=== PATIENT | female | born 1980 | race Two or more races ===

== ENCOUNTER 2025-02-06 09:25 | Emergency (ER) | payer MEDICAID, OTHER ==
[~2025-02-06] VITALS: Ht 165.1 cm; Wt 59.0 kg
--- NOTE | 2025-02-06 09:49 | ED.PDOC ---
Psychiatric HPI Comments 44 y/o F, HUANG, presents to the ED for CC of suicidal ideation. Patient states, that she has been having suicidal ideations with feelings of "wanting to jump off a building" and associated auditory hallucinations that she is unable to block out which are constantly talking. Patient relays, homicidal ideations as well but feels that she is more of a victim where she would have to act an in attempt to defend herself. Patient admits to recently using methamphetamines, drinking alcohol, and noncompliance with prescribed medications. Patient denies significant changes in sleep, appetite, or energy. Chief Complaint: Suicidal Time Seen by MD: 09:45 Reviewed Notes: Nurses Notes, Medications, Allergies Information Source: Patient, Emergency Med Personnel Mode of Arrival: EMS Severity: Able to Control Self Severity of Pain: None Severity of Mental Status: Moderate Severity of Symptoms: Moderate Timing: Days Duration: Since onset Prehospital treatment: None Presents with: Suicidal Ideation Attempt: Other Ingestion: None Circumstance: None Current substance abuse: ETOH, Amphetamines Stressors: None History of: None Quality: Hallucinations Associated signs and symptoms: None Past Medical History PAST MEDICAL HISTORY: Denies Surgical History: Denies all surgeries SCALPER OPERATOR History: Denies all SCALPER OPERATOR Hx Family History Family History: Unknown Social History Smoker: Unknown Alcohol: Occasionally Drugs: Methamphetamine Lives In: Unknown Constitutional: denies: chills, diaphoresis, fatigue, fever, malaise, sweats, weakness, others EENTM: denies: blurred vision, double vision, ear bleeding, ear discharge, ear drainage, ear pain, ear ringing, eye pain, eye redness, hearing loss, mouth pain, mouth swelling, nasal discharge, nose bleeding, nose congestion, nose pain, photophobia, tearing, throat pain, throat swelling, voice changes, others Respiratory: denies: cough, hemoptysis, orthopnea, SOB at rest, shortness of breath, SOB with excertion, stridor, wheezing, others Cardiovascular: denies: chest pain, dizzy spells, diaphoresis, Dyspnea on exertion, edema, irregular heart beat, left arm pain, lightheadedness, palpi tations, PND, syncope, others Gastrointestinal: denies: abdomen distended, abdominal pain, blood streaked bowels, constipated, diarrhea, dysphagia, difficulty swallowing, hematemesis, melena, nausea, poor appetite, poor fluid intake, rectal bleeding, rectal pain, vomiting, others Genitourinary: denies: abnormal vagina bleeding, burning, dyspareunia, dysuria, flank pain, frequency, hematuria, incontinence, pain, , vagina discharge, urgency, others Neurological: denies: dizziness, fainting, headache, left sided numbness, left sided weakness, numbness, paresthesia, pre-existing deficit, right sided numbness, right sided weakness, seizure, speech problems, tingling, tremors, weakness, others Integumetry: denies: bruises, change in color, change in hair/nails, dryness, laceration, lesions, lumps, rash, wounds, others Allergic/Immunocompromised: denies: Difficulty Healing, Frequent Infections, Hives, Itching, others Hematologic/Lymphatic: denies: anemia, blood clots, easy bleeding, easy bruising, swollen glands, others Endocrine: denies: excessive hunger, excessive sweating, excessive thirst, excessive urination, flushing, intolerance to cold, intolerance to heat, unexplained weight gain, unexplained weight loss, others Psychiatric: reports: suicidal; denies: anxiety, bipolar disorder, depression, hopeless, panic disorder, schizophrenia, sleepless, others All Other Systems: Reviewed and Negative Physical Exam General Appearance: No Apparent Distress, Normal, Other (unkempt disheveled) HEENT: Normal ENT Inspection, Pharynx Normal Neck: Full Range of Motion, Non-Tender, Normal, Normal Inspection Respiratory: Chest Non-Tender, Lungs Clear, No Accessory Muscle Use, No Respiratory Distress, Normal Breath Sounds Cardiovascular: No Edema, No Murmur, No Gallop, Normal Peripheral Pulses, Regular Rate/Rhythm Breast Exam: Deferred Gastrointestinal: No Organomegaly, Non Tender, No Pulsatile Mass, Normal Bowel Sounds, Soft Genitalia: Deferred Pelvic: Deferred Rectal: Deferred Extremities: No calf tenderness, Normal capillary refill, Normal inspection, Normal range of motion, Non-tender, No pedal edema Musculoskeletal : Apperance: Normal Neurologic: Alert, general handling supervisor II-XII nml as Tested, No Motor Deficits, Normal Affect, Normal Mood, No Sensory Deficits Cerebellar Function: Normal Reflexes: Normal Skin: Dry, Normal Color, Warm Lymphatic: No Adenopathy Was a procedure done? Was a procedure done?: No Psych Differential Dx OD Differential Dx: Depression, Hallucinations, Schizophrenia, Substance Abuse, Suicidal Gesture Suicidal Differential Dx: Bipolar Disorder, Schizoprenia, Substance Abuse X-Ray, Labs, Meds, VS Vital Signs Date Time Temp Pulse Resp B/P (MAP) Pulse Ox O2 Delivery O2 Flow Rate FiO2 02/06/25 20:37 98.3 72 18 112/71 (85) 98 98.3 02/06/25 20:00 98.3 77 18 110/88 (95) 98 98.3 02/06/25 20:00 98 Room Air* 0 21 02/06/25 12:11 Room Air* 0 21 02/06/25 12:11 97.8 101 16 109/74 (86) 98 97.8 02/06/25 09:30 98.2 72 18 108/69 (82) 100 98.2 Lab Test 02/06/25 13:00 02/06/25 10:20 Range/Units Urine Color Yellow Yellow Urine Clarity Turbid H Clear Urine pH 6.0 5.0-9.0 Urine Specific [place] 1.022 1.001-1.035 Urine Protein 1+ H Negative Urine Ketones Trace Negative Urine Blood Negative Negative /uL Urine Nitrite Negative Negative Urine Bilirubin Negative Negative Urine Urobilinogen 2 H Negative mg/dL Urine Leukocyte Esterase Negative Negative /uL Urine RBC 1 0 - 4 /hpf Urine Microscopic WBC 6 H 0-5 /HPF Urine Squamous Epithelial Cells Few <5 /hpf Urine Bacteria None seen None Seen /hpf Urine Mucus Few None Seen Urine Glucose Normal Normal mg/dL Urine Opiates Screen Neg NEGATIVE Urine Fentanyl Screen Neg NEGATIVE Urine Barbiturates Screen Neg NEGATIVE Urine Phencyclidine Screen Neg NEGATIVE Urine Amphetamines Screen Neg NEGATIVE Urine Benzodiazepines Screen Pos NEGATIVE Urine Cocaine Screen Neg NEGATIVE Urine Cannabinoids Screen Neg NEGATIVE White Blood Count 8.9 4.4-10.8 10^3/uL Red Blood Count 4.29 4.0-5.20 10^6/uL Hemoglobin 13.5 12.2-16.2 g/dL Hematocrit 39.1 36.0-46.0 % Mean Corpuscular Volume 91.1 80.0-100.0 fL Mean Corpuscular Hemoglobin 31.4 28.0-32.0 pg Mean Corpuscular Hemoglobin Concent 34.4 32.0-36.0 g/dL Red Cell Distribution Width 13.4 11.8-14.3 % Platelet Count 397 140-450 10^3/uL Mean Platelet Volume 7.0 6.9-10.8 fL Neutrophils (%) (Auto) 61.1 37.0-80.0 % Lymphocytes (%) (Auto) 31.6 10.0-50.0 % Monocytes (%) (Auto) 5.9 0.0-12.0 % Eosinophils (%) (Auto) 1.1 0.0-7.0 % Basophils (%) (Auto) 0.3 0.0-2.0 % Neutrophils # (Auto) 5.4 1.6-8.6 10 ^3/uL Lymphocytes # (Auto) 2.8 0.4-5.4 10 ^3/uL Monocytes # (Auto) 0.5 0-1.3 10 ^3/uL Eosinophils # (Auto) 0.1 0-0.8 10 ^3/uL Basophils # (Auto) 0 0-0.2 10 ^3/uL Nucleated Red Blood Cells 0.1 % Sodium Level 142 136-145 mmol/L Potassium Level 3.3 L 3.5-5.1 mmol/L Chloride Level 104 98-107 mmol/L Carbon Dioxide Level 30 20-31 mmol/L Anion Gap 8 5-15 Blood Urea Nitrogen 6 L 9-23 mg/dL Creatinine 0.59 0.550-1.02 mg/dL Glomerular Filtration Rate Calc 114 >90 mL/min BUN/Creatinine Ratio 10.2 10.0-20.0 Serum Glucose 92 74-106 mg/dL Calcium Level 10.6 H 8.7-10.4 mg/dL Salicylates Level < 3.0 -30 mg/dL Acetaminophen Level < 2.0 L 10.0-20.0 UG/ML Plasma/Serum Blood Alcohol < 3.0 <10 mg/dL Time of 1ST Reevaluation: 10:15 Reevaluation 1ST: Unchanged Patient Education/Counseling: Diagnosis, Treatment Family Education/Counseling: No Family Present Departure 1 Departure Time of Disposition: 18:36 (Patient presenting with suicide ideation. Patient is medically cleared. [facility] was accepted to [facility] Impression: Primary Impression: Suicidal ideation Disposition: [address] [place] [address] HOSPITAL Condition: Serious Critical Care Note Critical Care Time?: Yes Critical care comment: Suicidal Authorized and Performed by: Keegan Figueroa MD Total critical care time: Approximately 34 minutes Due to a high probability of clinically significant, life threatening deterioration, the patient required my highest level of preparedness to intervene emergently and I personally spent this critical care time directly and personally managing the patient. This critical care time included obtaining a history; examining the patient; pulse oximetry; ordering and review of studies; arranging urgent treatment with development of a management plan; evaluation of patient's response to treatment; frequent reassessment; and, discussions with other providers. This critical care time was performed to assess and manage the high probability of imminent, life-threatening deterioration that could result in multi-organ failure. It was exclusive of separately billable procedures and treating other patients and teaching time. Please see my other sections and the rest of the note for further information on patient assessment and treatment. Stability Stability form required: No Heart Score Heart Score: Heart Score Response (Comments) Value History N/A 0 EKG N/A 0 Age N/A 0 Risk Factors N/A 0 Troponin N/A 0 Total 0 I personally scribed for KEEGAN FIGUEROA MD ([email or web address]) on 02/06/25 at 09:49. Electronically submitted by Lilo Arriaga ([email or web address]). I personally scribed for KEEGAN FIGUEROA MD ([email or web address]) on 02/06/25 at 10:14. Electronically submitted by Lilo Arriaga ([email or web address]). KEEGAN FIGUEROA MD Feb 06, 2025 09:49
[2025-02-06 10:30] LABS: Hematocrit 39.1 % (36.0-46.0); Hemoglobin 13.5 g/dL (12.2-16.2); Mean Corpuscular Hemoglobin 31.4 pg (28.0-32.0); Mean Corpuscular Volume 91.1 fL (80.0-100.0); Nucleated Red Blood Cells % 0.1 %
[2025-02-06 10:41] LABS: Chloride 104 mmol/L (98-107); Sodium 142 mmol/L (136-145)
[2025-02-06 10:42] LABS: Anion Gap 8 (5-15); Carbon Dioxide 30 mmol/L (20-31)
[2025-02-06 10:47] LABS: BUN/Creatinine Ratio 10.2 (10.0-20.0); Glucose 92 mg/dL (74-106)
[2025-02-06 10:48] LABS: Blood Urea Nitrogen 6 mg/dL (9-23); Calcium 10.6 mg/dL (8.7-10.4); Potassium 3.3 mmol/L (3.5-5.1)
[2025-02-06 10:52] LABS: Acetaminophen < 2.0 UG/ML (10.0-20.0); Salicylate < 3.0 mg/dL (-30)
--- NOTE | 2025-02-06 12:04 | DVHINCON2 ---
Date of Service if different f: Feb 06, 2025 Time of Service: 12:04 Consultation (GRANT) Labs Laboratory Tests Test 02/06/25 10:20 White Blood Count 8.9 10^3/uL (4.4-10.8) Red Blood Count 4.29 10^6/uL (4.0-5.20) Hemoglobin 13.5 g/dL (12.2-16.2) Hematocrit 39.1 % (36.0-46.0) Mean Corpuscular Volume 91.1 fL (80.0-100.0) Mean Corpuscular Hemoglobin 31.4 pg (28.0-32.0) Mean Corpuscular Hemoglobin Concent 34.4 g/dL (32.0-36.0) Red Cell Distribution Width 13.4 % (11.8-14.3) Platelet Count 397 10^3/uL (140-450) Mean Platelet Volume 7.0 fL (6.9-10.8) Neutrophils (%) (Auto) 61.1 % (37.0-80.0) Lymphocytes (%) (Auto) 31.6 % (10.0-50.0) Monocytes (%) (Auto) 5.9 % (0.0-12.0) Eosinophils (%) (Auto) 1.1 % (0.0-7.0) Basophils (%) (Auto) 0.3 % (0.0-2.0) Neutrophils # (Auto) 5.4 10 ^3/uL (1.6-8.6) Lymphocytes # (Auto) 2.8 10 ^3/uL (0.4-5.4) Monocytes # (Auto) 0.5 10 ^3/uL (0-1.3) Eosinophils # (Auto) 0.1 10 ^3/uL (0-0.8) Basophils # (Auto) 0 10 ^3/uL (0-0.2) Nucleated Red Blood Cells 0.1 % Sodium Level 142 mmol/L (136-145) Potassium Level 3.3 mmol/L (3.5-5.1) Chloride Level 104 mmol/L (98-107) Carbon Dioxide Level 30 mmol/L (20-31) Anion Gap 8 (5-15) Blood Urea Nitrogen 6 mg/dL (9-23) Creatinine 0.59 mg/dL (0.550-1.02) Glomerular Filtration Rate Calc 114 mL/min (>90) BUN/Creatinine Ratio 10.2 (10.0-20.0) Serum Glucose 92 mg/dL (74-106) Calcium Level 10.6 mg/dL (8.7-10.4) Salicylates Level < 3.0 mg/dL (-30) Acetaminophen Level < 2.0 UG/ML (10.0-20.0) Plasma/Serum Blood Alcohol < 3.0 mg/dL (<10) Vitals Vital Signs Date Time Temp Pulse Resp B/P (MAP) Pulse Ox O2 Delivery O2 Flow Rate FiO2 02/06/25 09:30 98.2 72 18 108/69 (82) 100 98.2 PSYCHIATRY CONSULTATION ED INITIAL EVALUATION REASON FOR CONSULT: SI HPI: 44yo W presents with c/o SI and AH. On evaluation in the ED, pt is able to provide her name, location, gives the month and year. Says she is in the hospital because she was not feeling well, was hallucinating really bad, and hearing voices. This all started when she used a lot of meth a week. She was using more than I should have. She cannot says when she last used. She uses a lot, several days in a row, then she feels really sick. She denies other drugs, did have alcohol last night. Pt drinks quite often. Last night, she had some beer and other drinks, she cannot quite quantify. She reports history of blacking out due to intoxication. She denies alcohol withdrawal. Pt reports ongoing paranoid ideations. Feels she is being set up. She also reports ongoing SI, feels things are not going to get better. Says anything in my life is never going to get better. Pt says she feels this way even when she is not using. Pt says she wants to end her life. She denies access to firearms. In the past, pt used her hands to strangle herself. She also took 8 tablets of Zyprexa, she says to kill herself. No significant sequalae for either episode. Pt has no current plan or intention to kill herself. She wants help. PSYCHIATRIC HISTORY: DIAGNOSIS: Reports varying diagnoses, including bipolar disorder, schizoaffective d/o, major depression. ADMISSIONS: Prior admissions, cannot say last when. MEDICATION TRIALS: On Zyprexa 5 mg daily, 10 mg QHS, prescribed by her psychiatrist in [place]. Reports dystonic reaction, so takes Cogentin 1 mg daily. Pt also on Depakote 250 mg BID, Prozac 20 mg daily, also reports she is on Vistaril and Thorazine, cannot give exact doses. In the past, has been on Risperidone. OUTPATIENT CARE: In care per above. THERAPY: In the past, has not been in therapy for a while. SI/SELF-INJURY/SUICIDE ATTEMPT: She denies access to firearms. In the past, pt used her hands to strangle herself. She also took 8 tablets of Zyprexa, she says to kill herself. SUBSTANCE USE: Per above. RELEVANT MEDICAL HISTORY: Denies SOCIAL HISTORY: Highest level of education is the 8th grade. Grew up everywhere. Family moved all over since step-father was a soccer coach. Pt has 3 sisters and one brother. Currently homeless. Unemployed. Gets $1206 in SSI monthly. ALLERGIES: Haldol, dystonic reaction. MENTAL STATUS EXAMINATION: The patient is alert and oriented to person, place, and year, but not to exact date. She is cooperative but displays mild psychomotor slowing. Eye contact is fair. Speech is normal in rate and volume. Mood is not well, and affect is congruent, constricted. Thought process is linear and goal-directed. Thought content is notable for auditory hallucinations and paranoid ideation. The patient endorses suicidal ideation without a specific plan or intent at present but reports a history of past suicide attempts. No visual hallucinations reported. No homicidal ideation. Insight is limited, and judgment is impaired, especially in the context of substance use. Cognition grossly intact. 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 Her symptoms are compounded by significant methamphetamine and alcohol use. Although she denies current intent or plan, she has made multiple serious suicide attempts in the past, including strangulation and overdose on Zyprexa. She continues to report that life will never get better, even outside the context of substance use, suggesting a persistent depressive or psychotic baseline. Her insight is poor, and judgment impaired, particularly due to substance misuse. She is currently homeless and lacks social support, which further exacerbates her psychiatric risk and functional instability. Safety Assessment: The patient is not psychiatrically safe for discharge. She endorses suicidal ideation, reports recent and ongoing perceptual disturbances and paranoid ideation, and lacks adequate coping mechanisms or a stable environment. Given her impaired insight and repeated use of substances to the point of psychosis, she poses a significant risk to herself. She meets criteria for a 5150 involuntary psychiatric hold under [place] law for danger to self. RECOMMENDATIONS: 1. Legal: Initiate 5150 hold due to danger to self from suicidal ideation and psychosis. 2. Disposition: Transfer to inpatient psychiatric unit for stabilization and evaluation. 3. Medications: Restart Zyprexa 5 mg daily, 10 mg QHS. Other medications can be deferred to inpatient team. 4. Medical Considerations: Monitor for withdrawal symptoms; continue to assess for alcohol-related complications or stimulant toxicity. Obtain UDS. 5. Other: Recommend referral to dual diagnosis program/rehabilitation post- discharge; initiate social work consult for housing resources and long-term support. HARRY CHOE MD Feb 06, 2025 12:04
[2025-02-06 14:28] LABS: Urine Protein, UAD 1+ (Negative)
[2025-02-06 14:33] LABS: Amphetamine Screen, Urine Neg (NEGATIVE); Benzodiazephine Screen, Urine Pos (NEGATIVE)
[2025-02-06 14:36] LABS: Barbiturate Scree,Urine Neg (NEGATIVE); Cannabinoid Screen, Urine Neg (NEGATIVE); Cocaine Screen, Urine Neg (NEGATIVE); Opiate Scree,Urine Neg (NEGATIVE); Phencyclidine Screen, Urine Neg (NEGATIVE)
[2025-02-06 20:00] VITALS: O2SAT 98
[2025-02-06 20:37] VITALS: BP 112/71; PULSE 72; RESP 18; TEMP 98.3; O2SAT 98
[2025-02-06] MEDS ORDERED: OLANZapine 5 MG TAB PO SCH (22:00)
[2025-02-07] MEDS ORDERED: OLANZapine 5 MG TAB PO SCH (10:00)
== END 2025-02-06 20:37 ==
LOC: EDBD 09:25 → ER 09:25
DX: R45.851 Suicidal ideations (principal); R44.0 Auditory hallucinations
CPT/HCPCS: 36415; 80048; 80307; 80320; 80329; 81001; 85025

== ENCOUNTER 2025-03-26 02:15 | Emergency (ER) | payer MEDICAID ==
[~2025-03-26] VITALS: Ht 162.6 cm; Wt 59.0 kg
--- NOTE | 2025-03-26 06:40 | ED.PDOC ---
Psychiatric HPI Comments 44-year-old female who presents with the ED via EMS with a chief complaint of withdrawal onset 1 day. Per EMS, patient was at crisis center, is currently experiencing meth and alcohol withdrawal. Last use was 1 day ago. Patient states she was being taken to crisis center by her sister, when she experienced "visions." Patient states her only complaint is generalized pain, requesting medication. Denies any suicide ideation, homicidal ideation, fever, chills, nausea, vomiting, chest pain, shortness of breath. No other symptoms or modifying factors present at this time. Chief Complaint: Withdrawal Time Seen by MD: 06:30 Reviewed Notes: Medications, Allergies Information Source: Patient, Emergency Med Personnel Mode of Arrival: EMS Severity of Mental Status: Moderate Severity of Symptoms: Moderate Timing: Days Duration: Since onset Prehospital treatment: None Presents with: Anxiety History of: Anxiety, Alcoholism, ETOH Withdrawl Associated signs and symptoms: ETOH Past Medical History PAST MEDICAL HISTORY: Denies Surgical History: Denies all surgeries MARKSMANSHIP INSTRUCTOR History: Denies all MARKSMANSHIP INSTRUCTOR Hx Family History Family History: Unknown Social History Smoker: Unknown Alcohol: Occasionally Drugs: Methamphetamine Lives In: Unknown Constitutional: denies: chills, diaphoresis, fatigue, fever, malaise, sweats, weakness, others EENTM: denies: blurred vision, double vision, ear bleeding, ear discharge, ear drainage, ear pain, ear ringing, eye pain, eye redness, hearing loss, mouth pain, mouth swelling, nasal discharge, nose bleeding, nose congestion, nose pain, photophobia, tearing, throat pain, throat swelling, voice changes, others Respiratory: denies: cough, hemoptysis, orthopnea, SOB at rest, shortness of breath, SOB with excertion, stridor, wheezing, others Cardiovascular: denies: chest pain, dizzy spells, diaphoresis, Dyspnea on exertion, edema, irregular heart beat, left arm pain, lightheadedness, palpitations, PND, syncope, others Gastrointestinal: denies: abdomen distended, abdominal pain, blood streaked bowels, constipated, diarrhea, dysphagia, difficulty swallowing, hematemesis, melena, nausea, poor appetite, poor fluid intake, rectal bleeding, rectal pain, vomiting, others Genitourinary: denies: abnormal vagina bleeding, burning, dyspareunia, dysuria, flank pain, frequency, hematuria, incontinence, pain, , vagina discharge, urgency, others Neurological: denies: dizziness, fainting, headache, left sided numbness, left sided weakness, numbness, paresthesia, pre-existing deficit, right sided numbness, right sided weakness, seizure, speech problems, tingling, tremors, weakness, others Musculoskeletal: denies: back pain, gout, joint pain, joint swelling, muscle pain, muscle stiffness, neck pain, others Integumetry: denies: bruises, change in color, change in hair/nails, dryness, laceration, lesions, lumps, rash, wounds, others Allergic/Immunocompromised: denies: Difficulty Healing, Frequent Infections, Hives, Itching, others Hematologic/Lymphatic: denies: anemia, blood clots, easy bleeding, easy bruising, swollen glands, others Endocrine: denies: excessive hunger, excessive sweating, excessive thirst, excessive urination, flushing, intolerance to cold, intolerance to heat, unexplained weight gain, unexplained weight loss, others Psychiatric: reports: anxiety, others; denies: bipolar disorder, depression, hopeless, panic disorder, schizophrenia, sleepless, suicidal All Other Systems: Reviewed and Negative Physical Exam General Appearance: Moderate Distress HEENT: Normal ENT Inspection, Pharynx Normal, TMs Normal Neck: Full Range of Motion, Non-Tender, Normal, Normal Inspection Respiratory: Chest Non-Tender, Lungs Clear, No Accessory Muscle Use, No Respiratory Distress, Normal Breath Sounds Cardiovascular: No Edema, No JVD, No Murmur, No Gallop, Normal Peripheral Pulses, Regular Rate/Rhythm Breast Exam: Deferred Gastrointestinal: No Organomegaly, Non Tender, No Pulsatile Mass, Normal Bowel Sounds, Soft Genitalia: Deferred Pelvic: Deferred Rectal: Deferred Extremities: No calf tenderness, Normal capillary refill, Normal inspection, Normal range of motion, Non-tender, No pedal edema Musculoskeletal : Apperance: Normal Neurologic: Alert, rn nursery II-XII nml as Tested, No Motor Deficits, Normal Affect, Normal Mood, No Sensory Deficits Cerebellar Function: Normal Reflexes: Normal Skin: Dry, Normal Color, Warm Peripheral Pulses: 3+ Radial (R), 3+ Radial (L) Lymphatic: No Adenopathy Was a procedure done? Was a procedure done?: No Psych Differential Dx Psych. Differential Dx: Anxiety X-Ray, Labs, Meds, VS Vital Signs Date Time Temp Pulse Resp B/P (MAP) Pulse Ox O2 Delivery O2 Flow Rate FiO2 03/26/25 02:22 98.8 100 16 107/61 99 98.8 Patient alert. Vitals stable. Ambulating. No sign of distress. Denies suicidal or homicidal ideation. Tolerating diet. Was told to follow up with her psychiatrist. Was told to follow up with her primary care physician. Was told to come back if there is any problem. Time of 1ST Reevaluation: 07:00 Reevaluation 1ST: Unchanged Patient Education/Counseling: Diagnosis, Treatment, Prognosis Family Education/Counseling: No Family Present Departure 1 Departure Time of Disposition: 06:49 Impression: Primary Impression: Anxiety Disposition: 01 HOME / SELF CARE / HOMELESS Condition: Good Discharged With: Self Critical Care Note Critical Care Time?: No Stability Stability form required: No Heart Score Heart Score: Heart Score Response (Comments) Value History N/A 0 EKG N/A 0 Age N/A 0 Risk Factors N/A 0 Troponin N/A 0 Total 0 I personally scribed for LUIS ANTONIO BOOGIE MD ([email or web address]) on 03/26/25 at 06:40. Electronically submitted by Alejandrina Eisenberg ([email or web address]). LUIS ANTONIO BOOGIE MD Mar 26, 2025 06:40
[2025-03-26 07:23] VITALS: BP 109/77; PULSE 93; RESP 18; TEMP 98.7; O2SAT 94
== END 2025-03-26 07:26 | disposition home or self-care (01) ==
LOC: EDBD 02:15 → ER 02:20
DX: F41.9 Anxiety disorder, unspecified (principal); F10.239 Alcohol dependence with withdrawal, unspecified; F17.200 Nicotine dependence, unspecified, uncomplicated; Y90.9 Presence of alcohol in blood, level not specified